=== PATIENT | female | born 1945 | race Caucasian/White ===

== ENCOUNTER 2019-08-02 10:01 | Emergency (ER) | payer OTHER ==
[~2019-08-02] VITALS: Ht 165.1 cm; Wt 68.9 kg
[2019-08-02 10:16] VITALS: BP 125/63; Ht 165.1 cm; Wt 68.9 kg
== END 2019-08-02 12:02 | disposition home or self-care (01) ==
LOC: ED 10:01
DX: S63.92XA Sprain of unspecified part of left wrist and hand, initial encounter (principal); S20.212A Contusion of left front wall of thorax, initial encounter; I10 Essential (primary) hypertension; E11.9 Type 2 diabetes mellitus without complications; Z88.8 Allergy status to other drugs, medicaments and biological substances; W18.30XA Fall on same level, unspecified, initial encounter; Y93.89 Activity, other specified; Y92.89 Other specified places as the place of occurrence of the external cause; Y99.8 Other external cause status